=== PATIENT | male | born 1945 | race Caucasian/White ===

== ENCOUNTER 2022-11-04 19:21 | Inpatient (IN) | payer OTHER, BC ==
[2022-11-04 19:45] VITALS: BMI 31.9
[2022-11-04] MEDS ORDERED: ACETAMINOPHEN 1000 MG/100 ML BAG IVPB ONE (22:55)
[2022-11-05 00:04] LABS: BASO % 0.5 % (0-2.0); EOS % 1.1 % (0-4.5); HEMATOCRIT 47.4 % (35.4-49); HEMOGLOBIN 15.9 GM/dL (11.7-16.9); LYMPH % 12.2 % (8-40); MCH 32.7 pg (25.7-33.7); MCHC 33.6 g/dl (32.0-35.9); MEAN CELL VOLUME 97.4 fl (80-96); MEAN PLT VOLUME 8.7 fl (7.5-11.1); NEUT % 73.2 % (42.8-82.8); PLATELET COUNT 290 10^3/uL (134-434); RBC 4.86 M/mm3 (4.00-5.60); RDW 13.5 % (11.9-15.9); WHITE BLOOD COUNT 9.4 K/mm3 (4.0-10.0)
[2022-11-05 00:27] LABS: CHLORIDE 100 mmol/L (98-107); SODIUM 131 mmol/L (136-145)
[2022-11-05 00:29] LABS: ALBUMIN 3.5 g/dl (3.4-5.0); CALCIUM 9.4 mg/dL (8.5-10.1); CO2 30 mmol/L (21-32)
[2022-11-05 00:30] LABS: BLOOD UREA NITROGEN 23.2 mg/dL (7-18); GLUCOSE,RANDOM 86 mg/dL (74-106)
[2022-11-05 00:33] LABS: CREATININE 1.4 mg/dL (0.55-1.3)
[2022-11-05 00:34] LABS: TOT PROT 9.2 g/dl (6.4-8.2)
[2022-11-05] MEDS ORDERED: VANCOMYCIN 1 GM in D5W (PRE-DOCKED) 1,000 MG/250 ML (RESTRICTED TO ID ONLY IVPB ONE (00:34)
[2022-11-05] MEDS ORDERED: PIPERACILLIN/TAZOB 4.5 GM 4.5 GM in DEXTROSE 5%-WATER 100 ML IVPB ONE (00:34)
[2022-11-05 00:35] LABS: ALK PHOS 96 U/L (45-117)
[2022-11-05 00:49] LABS: ANION GAP 1 MMOL/L (8-16); POTASSIUM > 10.0 mmol/L (3.5-5.1); SGOT/AST 229 U/L (15-37); SGPT/ALT 34 U/L (13-61)
[2022-11-05] MEDS ORDERED: PIPERACILLIN/TAZOB 4.5 GM 4.5 GM/100 ML BAG IVPB ONE (00:59)
[2022-11-05] MEDS ORDERED: VANCOMYCIN/WATER FOR INJ (PEG) 1,000 MG/200 ML BAG IVPB ONE (00:59)
[2022-11-05] MEDS ORDERED: LORazepam 2 MG/ML SDV VIAL IVPUSH ONE ×2 (01:25→03:34)
[2022-11-05 03:17] LABS: POTASSIUM 9.3 mmol/L (3.5-5.1)
[2022-11-05] MEDS ORDERED: HEPARIN NA (PORCINE) 5,000 UNITS/ML 1ML VIAL SQ SCH (06:00)
[2022-11-05 06:41] LABS: HEMATOCRIT 44.1 % (35.4-49); HEMOGLOBIN 14.9 GM/dL (11.7-16.9); MCH 32.9 pg (25.7-33.7); MCHC 33.7 g/dl (32.0-35.9); MEAN CELL VOLUME 97.5 fl (80-96); MEAN PLT VOLUME 8.2 fl (7.5-11.1); PLATELET COUNT 243 10^3/uL (134-434); RBC 4.52 M/mm3 (4.00-5.60); RDW 13.1 % (11.9-15.9); WHITE BLOOD COUNT 10.4 K/mm3 (4.0-10.0)
[2022-11-05] MEDS ORDERED: ALBUTEROL SO4 HFA INHALER IH PRN (06:46)
[2022-11-05 07:05] LABS: CHLORIDE 104 mmol/L (98-107); POTASSIUM 4.4 mmol/L (3.5-5.1); SODIUM 138 mmol/L (136-145)
[2022-11-05 07:05] LABS: EPI CELLS 3 /uL (0-25.1); HYALINE CASTS 0 /uL (0-3.1); URINE APPEARANCE CLEAR; URINE BACTERIA 1 /uL (0-1359); URINE BILIRUBIN NEGATIVE (NEGATIVE); URINE COLOR YELLOW; URINE GLUCOSE (UA) NEGATIVE (NEGATIVE); URINE KETONE NEGATIVE (NEGATIVE); URINE LEUK ESTERASE TRACE (NEGATIVE); URINE NITRITE NEGATIVE (NEGATIVE); URINE PROTEIN TRACE (NEGATIVE); URINE RBC 26 /uL (0-23.9); URINE UROBILINOGEN 0.2 mg/dL (0.2-1.0); URINE WBC 16 /uL (0-25.8)
[2022-11-05 07:08] LABS: ALBUMIN 3.5 g/dl (3.4-5.0); ANION GAP 8 MMOL/L (8-16); BLOOD UREA NITROGEN 21.3 mg/dL (7-18); CALCIUM 8.7 mg/dL (8.5-10.1); CO2 26 mmol/L (21-32); MAGNESIUM 2.1 mg/dL (1.8-2.4)
[2022-11-05 07:09] LABS: METHADONE, UR NEGATIVE (NEGATIVE); PHENCYCLIDINE,URINE NEGATIVE (NEGATIVE); URINE BENZODIAZEPINES NEGATIVE (NEGATIVE)
[2022-11-05 07:09] LABS: GLUCOSE,RANDOM 111 mg/dL (74-106)
[2022-11-05 07:10] LABS: COCAINE, UR NEGATIVE (NEGATIVE); OPIATES, URI NEGATIVE (NEGATIVE); URINE BARBITURATES NEGATIVE (NEGATIVE)
[2022-11-05 07:11] LABS: PHOSPHOROUS 2.7 mg/dL (2.5-4.9); SGOT/AST 20 U/L (15-37); SGPT/ALT 26 U/L (13-61)
[2022-11-05 07:12] LABS: CREATININE 1.3 mg/dL (0.55-1.3)
[2022-11-05 07:13] LABS: BILIRUBIN,TOTAL 0.8 mg/dL (0.2-1); TOT PROT 7.2 g/dl (6.4-8.2)
[2022-11-05 07:14] LABS: ALK PHOS 89 U/L (45-117)
[2022-11-05 07:15] LABS: URINE AMPHETAMINES NEGATIVE (NEGATIVE)
[2022-11-05] MEDS ORDERED: PIPERACILLIN/TAZOB 3.375 GM 3.375 GM in DEXTROSE 5%-WATER - 50 ML IVPB SCH (07:15)
[2022-11-05] MEDS ORDERED: LEVOTHYROXINE NA 50 MCG TABLET (FP) ONE (07:24)
[2022-11-05] MEDS ORDERED: PIPERACILLIN/TAZOB 3.375 GM 3.375 GM/50 ML BAG IVPB ONE (07:25)
[2022-11-05] MEDS: LEVOTHYROXINE NA 50 MCG TABLET (FP) PO SCH (07:33)
[2022-11-05] MEDS ORDERED: TAMSULOSIN HCL 0.4 MG CAP ONE (08:18)
[2022-11-05] MEDS: LORazepam 2 MG/ML SDV VIAL IVPUSH SCH ×3 (08:24→20:44)
[2022-11-05] MEDS ORDERED: TAMSULOSIN HCL 0.4 MG CAP PO SCH (08:30)
[2022-11-05] MEDS ORDERED: FOLIC ACID INJECTION - 1 MG, THIAMINE HCL 100 MG, MULTIVIT INJECTION ADULT 10 ML in SOD... IVPB ONE (09:30)
[2022-11-05] MEDS ORDERED: PATIENT'S OWN MEDICATION (NON-FORMULARY) (Mirabegron [Myrbetriq] 25 MG Tab.Er.24h) PO SCH (10:00)
[2022-11-05] MEDS ORDERED: DULoxetine HCL 30 MG CAPSULE.DR PO SCH (10:00)
[2022-11-05] MEDS ORDERED: FUROSEMIDE 40 MG TABLET (FP) ONE (11:28)
[2022-11-05] MEDS ORDERED: APIXABAN 5 MG TABLET ONE (11:28)
[2022-11-05] MEDS ORDERED: PHENYTOIN NA EXTENDED 100 MG CAPSULE (FP) ONE (11:28)
[2022-11-05] MEDS ORDERED: DULoxetine HCL 30 MG CAPSULE.DR PO ONE (11:28)
[2022-11-05] MEDS ORDERED: ASPIRIN 81 MG CHEWABLE TABLETS ONE (11:28)
[2022-11-05] MEDS: ASPIRIN 81 MG CHEWABLE TABLETS PO SCH (11:34)
[2022-11-05] MEDS: BACITRACIN ZINC 15 GM TUBE TOPICAL OINTMENT TP SCH (11:34)
[2022-11-05] MEDS: METOPROLOL TARTRATE 25 MG TABLET (FP) PO SCH (11:34)
[2022-11-05] MEDS: PHENYTOIN NA EXTENDED 100 MG CAPSULE (FP) PO SCH ×2 (11:34→23:40)
[2022-11-05] MEDS: FUROSEMIDE 40 MG TABLET (FP) PO SCH (11:34)
[2022-11-05] MEDS: APIXABAN 5 MG TABLET PO SCH ×2 (11:34→21:43)
[2022-11-05] MEDS ORDERED: GABAPENTIN 300 MG CAPSULE ONE (14:27)
[2022-11-05] MEDS ORDERED: ceFAZolin SODIUM 1 GM VIAL ONE (14:28)
[2022-11-05] MEDS: CEFAZOLIN 1 GM in DEXTROSE 5%-WATER - 50 ML IVPB SCH ×2 (14:40→18:06)
[2022-11-05] MEDS: GABAPENTIN 300 MG CAPSULE PO SCH ×2 (14:40→21:43)
[2022-11-05] MEDS: THIAMINE HCL 200 MG/2 ML VIAL IVPB SCH (21:41)
[2022-11-05] MEDS: BUDESONIDE/FORMETEROL FUMARATE 160/4.5 mcg INHALER IH SCH (21:42)
[2022-11-05] MEDS: MONTELUKAST NA 10 MG TABLET PO SCH (21:42)
[2022-11-05] MEDS: ROSUVASTATIN CA 20 MG TABLET PO SCH (21:43)
[2022-11-05] MEDS ORDERED: DONEPEZIL HCL 10 MG TABLET (FP) PO SCH (22:00)
[2022-11-06] MEDS: LORazepam 2 MG/ML SDV VIAL IVPUSH SCH ×4 (01:24→21:44)
[2022-11-06] MEDS: CEFAZOLIN 1 GM in DEXTROSE 5%-WATER - 50 ML IVPB SCH ×3 (01:48→17:15)
[2022-11-06] MEDS ORDERED: LORazepam 2 MG/ML SDV VIAL IVPUSH ONE (03:06)
[2022-11-06] MEDS ORDERED: MELATONIN 1 MG TABLET PO PRN (03:07)
[2022-11-06] MEDS: THIAMINE HCL 200 MG/2 ML VIAL IVPB SCH ×4 (03:39→22:34)
[2022-11-06] MEDS: GABAPENTIN 300 MG CAPSULE PO SCH ×3 (05:09→21:44)
[2022-11-06] MEDS: LEVOTHYROXINE NA 50 MCG TABLET (FP) PO SCH (06:11)
[2022-11-06] MEDS: METOPROLOL TARTRATE 25 MG TABLET (FP) PO SCH (09:10)
[2022-11-06] MEDS: APIXABAN 5 MG TABLET PO SCH ×2 (09:11→21:44)
[2022-11-06] MEDS: ASPIRIN 81 MG CHEWABLE TABLETS PO SCH (09:11)
[2022-11-06] MEDS: FUROSEMIDE 40 MG TABLET (FP) PO SCH (11:20)
[2022-11-06] MEDS: BACITRACIN ZINC 15 GM TUBE TOPICAL OINTMENT TP SCH (11:20)
[2022-11-06] MEDS: PHENYTOIN NA EXTENDED 100 MG CAPSULE (FP) PO SCH ×2 (14:24→21:50)
[2022-11-06] MEDS: ROSUVASTATIN CA 20 MG TABLET PO SCH (21:44)
[2022-11-06] MEDS: MONTELUKAST NA 10 MG TABLET PO SCH (21:44)
[2022-11-06] MEDS: BUDESONIDE/FORMETEROL FUMARATE 160/4.5 mcg INHALER IH SCH (21:45)
[2022-11-07] MEDS: CEFAZOLIN 1 GM in DEXTROSE 5%-WATER - 50 ML IVPB SCH ×2 (01:53→09:01)
[2022-11-07] MEDS: LORazepam 2 MG/ML SDV VIAL IVPUSH SCH ×3 (02:28→14:46)
[2022-11-07] MEDS: THIAMINE HCL 200 MG/2 ML VIAL IVPB SCH ×3 (03:46→15:57)
[2022-11-07] MEDS: LEVOTHYROXINE NA 50 MCG TABLET (FP) PO SCH (06:55)
[2022-11-07] MEDS: GABAPENTIN 300 MG CAPSULE PO SCH ×2 (06:56→14:45)
[2022-11-07] MEDS ORDERED: INSULIN (NOVOLOG) ASPART 100 UNITS/ML 10ML VIAL ONE (07:20)
[2022-11-07] MEDS: APIXABAN 5 MG TABLET PO SCH (09:00)
[2022-11-07] MEDS: METOPROLOL TARTRATE 25 MG TABLET (FP) PO SCH (09:00)
[2022-11-07] MEDS: ASPIRIN 81 MG CHEWABLE TABLETS PO SCH (09:00)
[2022-11-07] MEDS: FUROSEMIDE 40 MG TABLET (FP) PO SCH (09:01)
[2022-11-07] MEDS: BACITRACIN ZINC 15 GM TUBE TOPICAL OINTMENT TP SCH (09:02)
[2022-11-07] MEDS: PHENYTOIN NA EXTENDED 100 MG CAPSULE (FP) PO SCH (09:37)
[2022-11-08] MEDS: LORazepam 2 MG/ML SDV VIAL IVPUSH SCH ×2 (00:06→03:51)
[2022-11-08] MEDS: THIAMINE HCL 200 MG/2 ML VIAL IVPB SCH ×4 (00:06→18:17)
[2022-11-08] MEDS: MONTELUKAST NA 10 MG TABLET PO SCH ×2 (00:07→21:43)
[2022-11-08] MEDS: APIXABAN 5 MG TABLET PO SCH ×3 (00:07→21:43)
[2022-11-08] MEDS: GABAPENTIN 300 MG CAPSULE PO SCH ×4 (00:07→21:43)
[2022-11-08] MEDS: ROSUVASTATIN CA 20 MG TABLET PO SCH ×2 (00:07→21:43)
[2022-11-08] MEDS: PHENYTOIN NA EXTENDED 100 MG CAPSULE (FP) PO SCH ×3 (00:17→21:44)
[2022-11-08] MEDS: BUDESONIDE/FORMETEROL FUMARATE 160/4.5 mcg INHALER IH SCH ×2 (00:18→23:09)
[2022-11-08 10:08] LABS: EOS % 0.5 % (0-4.5); HEMATOCRIT 43.3 % (35.4-49); HEMOGLOBIN 14.8 GM/dL (11.7-16.9); LYMPH % 7.9 % (8-40); MCH 33.6 pg (25.7-33.7); MCHC 34.2 g/dl (32.0-35.9); MEAN CELL VOLUME 98.4 fl (80-96); MEAN PLT VOLUME 8.1 fl (7.5-11.1); NEUT % 75.6 % (42.8-82.8); PLATELET COUNT 259 10^3/uL (134-434); RDW 12.9 % (11.9-15.9); WHITE BLOOD COUNT 10.3 K/mm3 (4.0-10.0)
[2022-11-08 10:25] LABS: POTASSIUM 4.1 mmol/L (3.5-5.1)
[2022-11-08 10:34] LABS: ALBUMIN 3.2 g/dl (3.4-5.0); CALCIUM 8.7 mg/dL (8.5-10.1)
[2022-11-08 10:37] LABS: CREATININE 1.3 mg/dL (0.55-1.3)
[2022-11-08 10:38] LABS: TOT PROT 7.3 g/dl (6.4-8.2)
[2022-11-08 10:41] LABS: BILIRUBIN,TOTAL 0.9 mg/dL (0.2-1)
[2022-11-08] MEDS: ASPIRIN 81 MG CHEWABLE TABLETS PO SCH (11:42)
[2022-11-08] MEDS: METOPROLOL TARTRATE 25 MG TABLET (FP) PO SCH (11:42)
[2022-11-08] MEDS: FUROSEMIDE 40 MG TABLET (FP) PO SCH (11:42)
[2022-11-08] MEDS: BACITRACIN ZINC 15 GM TUBE TOPICAL OINTMENT TP SCH (11:43)
[2022-11-09] MEDS ORDERED: ACETAMINOPHEN 500 MG TABLET (FP) PO ONE (01:18)
[2022-11-09] MEDS: LEVOTHYROXINE NA 50 MCG TABLET (FP) PO SCH (07:17)
[2022-11-09] MEDS: GABAPENTIN 300 MG CAPSULE PO SCH ×3 (07:17→22:54)
[2022-11-09] MEDS ORDERED: LORazepam 2 MG/ML SDV VIAL IVPUSH SCH (10:00)
[2022-11-09] MEDS: PHENYTOIN NA EXTENDED 100 MG CAPSULE (FP) PO SCH ×2 (10:58→22:55)
[2022-11-09] MEDS: FUROSEMIDE 40 MG TABLET (FP) PO SCH (10:58)
[2022-11-09] MEDS: APIXABAN 5 MG TABLET PO SCH ×2 (10:58→22:54)
[2022-11-09] MEDS: METOPROLOL TARTRATE 25 MG TABLET (FP) PO SCH (10:58)
[2022-11-09] MEDS: ASPIRIN 81 MG CHEWABLE TABLETS PO SCH (10:58)
[2022-11-09] MEDS: BACITRACIN ZINC 15 GM TUBE TOPICAL OINTMENT TP SCH (11:00)
[2022-11-09] MEDS: ROSUVASTATIN CA 20 MG TABLET PO SCH (22:54)
[2022-11-09] MEDS: MONTELUKAST NA 10 MG TABLET PO SCH (22:54)
[2022-11-09] MEDS: BUDESONIDE/FORMETEROL FUMARATE 160/4.5 mcg INHALER IH SCH (23:00)
[2022-11-09 23:34] VITALS: RESP 18
[2022-11-10] MEDS: GABAPENTIN 300 MG CAPSULE PO SCH ×3 (05:13→21:33)
[2022-11-10] MEDS: LEVOTHYROXINE NA 50 MCG TABLET (FP) PO SCH (06:37)
[2022-11-10] MEDS: ASPIRIN 81 MG CHEWABLE TABLETS PO SCH (10:24)
[2022-11-10] MEDS: METOPROLOL TARTRATE 25 MG TABLET (FP) PO SCH (10:24)
[2022-11-10] MEDS: BACITRACIN ZINC 15 GM TUBE TOPICAL OINTMENT TP SCH (10:26)
[2022-11-10] MEDS: APIXABAN 5 MG TABLET PO SCH ×2 (10:26→21:33)
[2022-11-10] MEDS: FUROSEMIDE 40 MG TABLET (FP) PO SCH (10:27)
[2022-11-10] MEDS: PHENYTOIN NA EXTENDED 100 MG CAPSULE (FP) PO SCH ×2 (10:27→21:33)
[2022-11-10] MEDS: ROSUVASTATIN CA 20 MG TABLET PO SCH (21:33)
[2022-11-10] MEDS: MONTELUKAST NA 10 MG TABLET PO SCH (21:33)
[2022-11-10] MEDS: BUDESONIDE/FORMETEROL FUMARATE 160/4.5 mcg INHALER IH SCH (21:39)
[2022-11-11] MEDS: GABAPENTIN 300 MG CAPSULE PO SCH ×3 (05:18→21:13)
[2022-11-11] MEDS: LEVOTHYROXINE NA 50 MCG TABLET (FP) PO SCH (06:30)
[2022-11-11] MEDS: METOPROLOL TARTRATE 25 MG TABLET (FP) PO SCH (10:46)
[2022-11-11] MEDS: ASPIRIN 81 MG CHEWABLE TABLETS PO SCH (10:46)
[2022-11-11] MEDS: FUROSEMIDE 40 MG TABLET (FP) PO SCH (10:46)
[2022-11-11] MEDS: APIXABAN 5 MG TABLET PO SCH ×2 (10:47→21:14)
[2022-11-11] MEDS: BACITRACIN ZINC 15 GM TUBE TOPICAL OINTMENT TP SCH (10:47)
[2022-11-11] MEDS: PHENYTOIN NA EXTENDED 100 MG CAPSULE (FP) PO SCH ×2 (10:47→21:13)
[2022-11-11 11:02] LABS: BASO % 0.3 % (0-2.0); EOS % 1.2 % (0-4.5); HEMATOCRIT 42.8 % (35.4-49); HEMOGLOBIN 14.9 GM/dL (11.7-16.9); LYMPH % 10.4 % (8-40); MCHC 34.9 g/dl (32.0-35.9); MEAN CELL VOLUME 97.4 fl (80-96); MEAN PLT VOLUME 8.2 fl (7.5-11.1); MONO % 12.7 % (3.8-10.2); NEUT % 75.4 % (42.8-82.8); PLATELET COUNT 268 10^3/uL (134-434); RBC 4.39 M/mm3 (4.00-5.60); RDW 12.7 % (11.9-15.9); WHITE BLOOD COUNT 8.9 K/mm3 (4.0-10.0)
[2022-11-11 11:23] LABS: POTASSIUM 4.2 mmol/L (3.5-5.1)
[2022-11-11 11:25] LABS: CALCIUM 8.9 mg/dL (8.5-10.1)
[2022-11-11 11:26] LABS: BLOOD UREA NITROGEN 30.4 mg/dL (7-18)
[2022-11-11 11:29] LABS: CREATININE 1.3 mg/dL (0.55-1.3)
[2022-11-11] MEDS: ROSUVASTATIN CA 20 MG TABLET PO SCH (21:13)
[2022-11-11] MEDS: MONTELUKAST NA 10 MG TABLET PO SCH (21:13)
[2022-11-11] MEDS: BUDESONIDE/FORMETEROL FUMARATE 160/4.5 mcg INHALER IH SCH (21:14)
[2022-11-11] MEDS: ACETAMINOPHEN 325 MG TABLET (FP) PO PRN (22:00)
[2022-11-11] MEDS: PRAMIPEXOLE DIHYDROCHLORIDE 0.25 MG TABLET PO SCH (23:00)
[2022-11-12] MEDS: LEVOTHYROXINE NA 50 MCG TABLET (FP) PO SCH ×2 (06:09→11:49)
[2022-11-12] MEDS: GABAPENTIN 300 MG CAPSULE PO SCH ×3 (06:09→21:57)
[2022-11-12] MEDS: ACETAMINOPHEN 325 MG TABLET (FP) PO PRN ×3 (06:10→22:05)
[2022-11-12 09:49] LABS: IRON SERUM 45 ug/dL (50-175)
[2022-11-12 09:51] LABS: TOTAL IRON BINDING CAPACITY 170 ug/dL (250-450)
[2022-11-12] MEDS: FUROSEMIDE 40 MG TABLET (FP) PO SCH (11:28)
[2022-11-12] MEDS: METOPROLOL TARTRATE 25 MG TABLET (FP) PO SCH (11:28)
[2022-11-12] MEDS: APIXABAN 5 MG TABLET PO SCH ×2 (11:28→21:57)
[2022-11-12] MEDS: ASPIRIN 81 MG CHEWABLE TABLETS PO SCH (11:29)
[2022-11-12] MEDS: PHENYTOIN NA EXTENDED 100 MG CAPSULE (FP) PO SCH ×2 (11:29→21:56)
[2022-11-12] MEDS: BACITRACIN ZINC 15 GM TUBE TOPICAL OINTMENT TP SCH (14:02)
[2022-11-12] MEDS: PRAMIPEXOLE DIHYDROCHLORIDE 0.25 MG TABLET PO SCH (21:57)
[2022-11-12] MEDS: ROSUVASTATIN CA 20 MG TABLET PO SCH (21:57)
[2022-11-12] MEDS: BUDESONIDE/FORMETEROL FUMARATE 160/4.5 mcg INHALER IH SCH (21:58)
[2022-11-12] MEDS: MONTELUKAST NA 10 MG TABLET PO SCH (21:58)
[2022-11-13] MEDS: GABAPENTIN 300 MG CAPSULE PO SCH ×2 (05:58→13:19)
[2022-11-13] MEDS: ACETAMINOPHEN 325 MG TABLET (FP) PO PRN ×2 (05:59→16:56)
[2022-11-13] MEDS: LEVOTHYROXINE NA 50 MCG TABLET (FP) PO SCH (06:03)
[2022-11-13] MEDS: METOPROLOL TARTRATE 25 MG TABLET (FP) PO SCH (11:16)
[2022-11-13] MEDS: APIXABAN 5 MG TABLET PO SCH (11:16)
[2022-11-13] MEDS: ASPIRIN 81 MG CHEWABLE TABLETS PO SCH (11:16)
[2022-11-13] MEDS: FUROSEMIDE 40 MG TABLET (FP) PO SCH (11:16)
[2022-11-13] MEDS: PHENYTOIN NA EXTENDED 100 MG CAPSULE (FP) PO SCH (11:17)
[2022-11-13] MEDS: BACITRACIN ZINC 15 GM TUBE TOPICAL OINTMENT TP SCH (15:07)
[2022-11-13 15:11] VITALS: BP 120/68; PULSE 75; TEMP 98.4
== END 2022-11-13 17:52 | DRG 602 ==
LOC: JER 19:21 → JERBED 11-05 01:43 → J6S 11-05 15:45
PROVIDERS: ADMIT Internal Medicine; ATTEND Internal Medicine
DX: L03.115 Cellulitis of right lower limb (principal); G93.41 Metabolic encephalopathy; L97.818 Non-pressure chronic ulcer of other part of right lower leg with other specified severity; I10 Essential (primary) hypertension; L03.116 Cellulitis of left lower limb; I25.2 Old myocardial infarction; G62.89 Other specified polyneuropathies; F32.A Depression, unspecified; J44.9 Chronic obstructive pulmonary disease, unspecified; E03.9 Hypothyroidism, unspecified; F10.10 Alcohol abuse, uncomplicated; I73.9 Peripheral vascular disease, unspecified; G40.909 Epilepsy, unspecified, not intractable, without status epilepticus; F03.90 Unspecified dementia, unspecified severity, without behavioral disturbance, psychotic disturbance, mood disturbance, and anxiety; I25.10 Atherosclerotic heart disease of native coronary artery without angina pectoris; E78.5 Hyperlipidemia, unspecified; G20 Parkinson's disease; G25.81 Restless legs syndrome; N32.81 Overactive bladder; Z95.5 Presence of coronary angioplasty implant and graft; Z95.0 Presence of cardiac pacemaker; Z86.73 Personal history of transient ischemic attack (TIA), and cerebral infarction without residual deficits; Z85.038 Personal history of other malignant neoplasm of large intestine
CPT/HCPCS: 36415; 70450-TC; 71045-TC-FY; 73590-TC-RT-FY; 73630-TC-RT-FY; 80048; 80053; 80185; 80307; 81003; 82607; 82962; 83036; 83540; 83550; 83735; 84100; 84132; 84443; 85025; 85027; 85651; 86140; 87040; 87081; 87635; 93005; 93010; 93306-TC; 93970-TC; 97116-GP; 97161-GP; 99285-25

== ENCOUNTER 2023-02-01 12:52 | Inpatient (IN) | payer OTHER, BC ==
[2023-02-01] MEDS ORDERED: SODIUM CHLORIDE 0.9% 500 ML INFUS.BAG IV ONE (13:49)
[2023-02-01 14:43] LABS: BASO % 0.6 % (0-2.0); EOS % 1.6 % (0-4.5); HEMATOCRIT 45.8 % (35.4-49); HEMOGLOBIN 15.7 GM/dL (11.7-16.9); LYMPH % 17.1 % (8-40); MCH 33.6 pg (25.7-33.7); MCHC 34.4 g/dl (32.0-35.9); MEAN CELL VOLUME 97.8 fl (80-96); MEAN PLT VOLUME 7.9 fl (7.5-11.1); MONO % 14.8 % (3.8-10.2); NEUT % 65.9 % (42.8-82.8); PLATELET COUNT 188 10^3/uL (134-434); RBC 4.68 M/mm3 (4.00-5.60); RDW 13.7 % (11.9-15.9); WHITE BLOOD COUNT 7.2 K/mm3 (4.0-10.0)
[2023-02-01 14:50] LABS: INR 1.19 (0.83-1.09); PROTHROMBIN TIME (PATIENT) 13.8 SEC (9.7-13.0)
[2023-02-01 14:53] LABS: ACTIVATED PTT 31.9 SECONDS (25.2-36.5)
[2023-02-01 15:05] LABS: CHLORIDE 103 mmol/L (98-107); POTASSIUM 4.4 mmol/L (3.5-5.1); SODIUM 135 mmol/L (136-145)
[2023-02-01 15:08] LABS: ANION GAP 7 mmol/L (4-13); CALCIUM 8.9 mg/dL (8.5-10.1); CO2 26 mmol/L (21-32); GLUCOSE,RANDOM 87 mg/dL (74-106); LIPASE 103 U/L (73-393); MAGNESIUM 2.3 mg/dL (1.8-2.4)
[2023-02-01 15:09] LABS: BLOOD UREA NITROGEN 31.6 mg/dL (7-18)
[2023-02-01 15:11] LABS: CREATININE 1.5 mg/dL (0.55-1.3); PHOSPHOROUS 3.8 mg/dL (2.5-4.9); SGOT/AST 29 U/L (15-37); SGPT/ALT 23 U/L (13-61)
[2023-02-01 15:13] LABS: BILIRUBIN,TOTAL 0.7 mg/dL (0.2-1); TOT PROT 7.8 g/dl (6.4-8.2)
[2023-02-01 15:14] LABS: ALK PHOS 90 U/L (45-117)
[2023-02-01] MEDS ORDERED: ACETAMINOPHEN 1000 MG/100 ML BAG IVPB ONE (15:19)
[2023-02-01 15:40] LABS: EPI CELLS 6 /uL (0-25.1); HYALINE CASTS 1 /uL (0-3.1); PH,URINE 5.5 (5.0-8.0); URINE APPEARANCE CLEAR; URINE BACTERIA 2 /uL (0-1359); URINE BILIRUBIN NEGATIVE (NEGATIVE); URINE COLOR DK YELLOW; URINE GLUCOSE (UA) NEGATIVE (NEGATIVE); URINE KETONE TRACE (NEGATIVE); URINE LEUK ESTERASE TRACE (NEGATIVE); URINE NITRITE NEGATIVE (NEGATIVE); URINE PROTEIN 1+ (NEGATIVE); URINE RBC 18 /uL (0-23.9); URINE WBC 23 /uL (0-25.8)
[2023-02-01] MEDS ORDERED: ACETAMINOPHEN INJECTION 100 ML IVPB ONE (16:08)
[2023-02-01 16:16] LABS: N-TERMINAL BNP 923.7 pg/ml (5-450)
[2023-02-01] MEDS ORDERED: AZITHROMYCIN IVPB 500 MG in DEXTROSE 5%-WATER - 250 ML IVPB ONE (16:17)
[2023-02-01] MEDS ORDERED: CEFTRIAXONE 1 GM in DEXTROSE 5%-WATER - 100 ML IVPB ONE (16:17)
[2023-02-01] MEDS ORDERED: CEFTRIAXONE 1 GM/50 ML BAG ONE (16:26)
[2023-02-01] MEDS ORDERED: AZITHROMYCIN IVPB 500 MG/250 ML BAG IVPB ONE (16:47)
[2023-02-01] MEDS ORDERED: FUROSEMIDE 40 MG/4 ML INJECTABLE VIAL IVPUSH ONE (17:12)
[2023-02-01] MEDS ORDERED: LORazepam 2 MG/ML SDV VIAL IVPUSH ONE (17:25)
[2023-02-01] MEDS ORDERED: FUROSEMIDE 40 MG/4 ML INJECTABLE VIAL ONE (17:28)
[2023-02-01] MEDS ORDERED: ALBUTEROL SO4 0.042% IH SOL 1.25 MG/3 ML VIAL.NEB NEB PRN (17:34)
[2023-02-01] MEDS: APIXABAN 5 MG TABLET PO SCH (21:09)
[2023-02-01] MEDS: PRAMIPEXOLE DIHYDROCHLORIDE 0.25 MG TABLET PO SCH (21:09)
[2023-02-01] MEDS: ROSUVASTATIN CA 20 MG TABLET PO SCH (21:09)
[2023-02-01] MEDS: PHENYTOIN NA EXTENDED 100 MG CAPSULE (FP) PO SCH (21:09)
[2023-02-01] MEDS: MONTELUKAST NA 10 MG TABLET PO SCH (21:09)
[2023-02-01] MEDS: BUDESONIDE/FORMETEROL FUMARATE 160/4.5 mcg INHALER IH SCH (21:54)
[2023-02-02] MEDS ORDERED: ACETAMINOPHEN 325 MG TABLET (FP) PO ONE (05:34)
[2023-02-02] MEDS: LEVOTHYROXINE NA 50 MCG TABLET (FP) PO SCH (06:24)
[2023-02-02] MEDS ORDERED: QUEtiapine FUMARATE 25 MG TABLET PO ONE (08:15)
[2023-02-02] MEDS: CEFTRIAXONE 1 GM in DEXTROSE 5%-WATER - 50 ML IVPB SCH (10:15)
[2023-02-02] MEDS: FUROSEMIDE 40 MG/4 ML INJECTABLE VIAL IVPUSH SCH (10:16)
[2023-02-02] MEDS: AZITHROMYCIN IVPB 250 MG in DEXTROSE 5%-WATER - 250 ML IVPB SCH (10:54)
[2023-02-02] MEDS ORDERED: PNEUMOC 20-VAL CONJ-DIP CRM/PF 0.5 ML SYRINGE IM ONE (11:00)
[2023-02-02] MEDS: metoPROLOL SUCCINATE 25 MG TAB.SR.24H (FP) PO SCH (11:57)
[2023-02-02] MEDS: APIXABAN 5 MG TABLET PO SCH ×2 (11:57→20:59)
[2023-02-02] MEDS: PHENYTOIN NA EXTENDED 100 MG CAPSULE (FP) PO SCH ×2 (11:57→20:59)
[2023-02-02] MEDS: BUDESONIDE/FORMETEROL FUMARATE 160/4.5 mcg INHALER IH SCH ×2 (14:26→21:04)
[2023-02-02] MEDS ORDERED: LORazepam 2 MG/ML SDV VIAL IVPB PRN (17:44)
[2023-02-02] MEDS: ROSUVASTATIN CA 20 MG TABLET PO SCH (20:59)
[2023-02-02] MEDS: PRAMIPEXOLE DIHYDROCHLORIDE 0.25 MG TABLET PO SCH (20:59)
[2023-02-02] MEDS: MONTELUKAST NA 10 MG TABLET PO SCH (20:59)
[2023-02-03] MEDS: LEVOTHYROXINE NA 50 MCG TABLET (FP) PO SCH (06:47)
[2023-02-03] MEDS ORDERED: HALOPERIDOL LACTATE 5 MG/ML IM ONE ×2 (08:45→16:35)
[2023-02-03] MEDS: FUROSEMIDE 40 MG/4 ML INJECTABLE VIAL IVPUSH SCH (09:34)
[2023-02-03] MEDS: CEFTRIAXONE 1 GM in DEXTROSE 5%-WATER - 50 ML IVPB SCH (09:34)
[2023-02-03] MEDS: AZITHROMYCIN IVPB 250 MG in DEXTROSE 5%-WATER - 250 ML IVPB SCH (10:26)
[2023-02-03] MEDS ORDERED: FLU VACCINE (FLULAVAL) PF 60 MCG/0.5 ML SYRINGE 2023-2024 IM ONE (11:00)
[2023-02-03] MEDS: PHENYTOIN NA EXTENDED 100 MG CAPSULE (FP) PO SCH ×2 (12:24→21:23)
[2023-02-03] MEDS: APIXABAN 5 MG TABLET PO SCH ×2 (12:24→21:24)
[2023-02-03] MEDS: metoPROLOL SUCCINATE 25 MG TAB.SR.24H (FP) PO SCH (12:24)
[2023-02-03] MEDS: BUDESONIDE/FORMETEROL FUMARATE 160/4.5 mcg INHALER IH SCH ×2 (12:28→21:25)
[2023-02-03] MEDS ORDERED: ALBUTEROL SO4 0.042% IH SOL 1.25 MG/3 ML VIAL.NEB NEB PRN (14:09)
[2023-02-03 14:49] VITALS: BMI 29.7
[2023-02-03] MEDS: THIAMINE HCL 100 MG TABLET (FP) PO SCH (16:44)
[2023-02-03] MEDS: FOLIC ACID 1 MG TABLET (FP) PO SCH (16:44)
[2023-02-03] MEDS ORDERED: LORazepam 2 MG/ML SDV VIAL IM SCH (16:45)
[2023-02-03 18:39] VITALS: RESP 18
[2023-02-03] MEDS: ROSUVASTATIN CA 20 MG TABLET PO SCH (21:23)
[2023-02-03] MEDS: MELATONIN 5 MG TABLETS PO SCH (21:24)
[2023-02-03] MEDS: OLANZapine 10 MG TABLET PO SCH (21:25)
[2023-02-03] MEDS: PRAMIPEXOLE DIHYDROCHLORIDE 0.25 MG TABLET PO SCH (21:25)
[2023-02-03] MEDS: MONTELUKAST NA 10 MG TABLET PO SCH (21:25)
[2023-02-03] MEDS ORDERED: BUDESONIDE/FORMETEROL FUMARATE 160/4.5 mcg INHALER IH SCH (22:00)
[2023-02-04] MEDS: LORazepam 2 MG/ML SDV VIAL IVPUSH PRN ×2 (04:02→10:21)
[2023-02-04] MEDS: LEVOTHYROXINE NA 50 MCG TABLET (FP) PO SCH (06:14)
[2023-02-04 07:28] LABS: BASO % 0.5 % (0-2.0); EOS % 1.9 % (0-4.5); HEMOGLOBIN 14.7 GM/dL (11.7-16.9); LYMPH % 14.4 % (8-40); MCH 33.7 pg (25.7-33.7); MCHC 34.3 g/dl (32.0-35.9); MEAN CELL VOLUME 98.2 fl (80-96); MEAN PLT VOLUME 7.7 fl (7.5-11.1); MONO % 14.9 % (3.8-10.2); NEUT % 68.3 % (42.8-82.8); PLATELET COUNT 181 10^3/uL (134-434); RBC 4.38 M/mm3 (4.00-5.60); RDW 13.6 % (11.9-15.9); WHITE BLOOD COUNT 6.8 K/mm3 (4.0-10.0)
[2023-02-04 07:40] LABS: POTASSIUM 3.8 mmol/L (3.5-5.1)
[2023-02-04 07:43] LABS: ALBUMIN 3.7 g/dl (3.4-5.0); CALCIUM 8.6 mg/dL (8.5-10.1)
[2023-02-04 07:46] LABS: CREATININE 1.7 mg/dL (0.55-1.3)
[2023-02-04 07:48] LABS: BILIRUBIN,TOTAL 0.5 mg/dL (0.2-1)
[2023-02-04] MEDS: THIAMINE HCL 100 MG TABLET (FP) PO SCH (09:12)
[2023-02-04] MEDS: APIXABAN 5 MG TABLET PO SCH ×2 (09:12→23:01)
[2023-02-04] MEDS: FUROSEMIDE 40 MG TABLET (FP) PO SCH (09:12)
[2023-02-04] MEDS: FOLIC ACID 1 MG TABLET (FP) PO SCH (09:12)
[2023-02-04] MEDS: metoPROLOL SUCCINATE 25 MG TAB.SR.24H (FP) PO SCH (09:12)
[2023-02-04] MEDS: PHENYTOIN NA EXTENDED 100 MG CAPSULE (FP) PO SCH ×2 (09:13→23:01)
[2023-02-04] MEDS: BUDESONIDE/FORMETEROL FUMARATE 160/4.5 mcg INHALER IH SCH ×2 (09:14→23:02)
[2023-02-04] MEDS: CEFTRIAXONE 1 GM in DEXTROSE 5%-WATER - 50 ML IVPB SCH (09:14)
[2023-02-04] MEDS: AZITHROMYCIN IVPB 250 MG in DEXTROSE 5%-WATER - 250 ML IVPB SCH (09:49)
[2023-02-04] MEDS ORDERED: MONTELUKAST NA 10 MG TABLET PO SCH (10:00)
[2023-02-04] MEDS ORDERED: HALOPERIDOL LACTATE 5 MG/ML IM ONE (11:55)
[2023-02-04 15:09] VITALS: BP 102/56; PULSE 91; TEMP 98
[2023-02-04] MEDS: MELATONIN 5 MG TABLETS PO SCH (23:01)
[2023-02-04] MEDS: ROSUVASTATIN CA 20 MG TABLET PO SCH (23:01)
[2023-02-04] MEDS: OLANZapine 10 MG TABLET PO SCH (23:02)
[2023-02-04] MEDS: MONTELUKAST NA 10 MG TABLET PO SCH (23:02)
[2023-02-04] MEDS: PRAMIPEXOLE DIHYDROCHLORIDE 0.25 MG TABLET PO SCH (23:02)
[2023-02-05] MEDS: LORazepam 2 MG/ML SDV VIAL IVPUSH PRN ×2 (04:53→09:50)
[2023-02-05] MEDS: LEVOTHYROXINE NA 50 MCG TABLET (FP) PO SCH (06:14)
[2023-02-05] MEDS: CEFTRIAXONE 1 GM in DEXTROSE 5%-WATER - 50 ML IVPB SCH (10:08)
[2023-02-05] MEDS: AZITHROMYCIN IVPB 250 MG in DEXTROSE 5%-WATER - 250 ML IVPB SCH (10:08)
[2023-02-05] MEDS: FOLIC ACID 1 MG TABLET (FP) PO SCH (10:09)
[2023-02-05] MEDS: metoPROLOL SUCCINATE 25 MG TAB.SR.24H (FP) PO SCH (10:09)
[2023-02-05] MEDS: APIXABAN 5 MG TABLET PO SCH (10:09)
[2023-02-05] MEDS: THIAMINE HCL 100 MG TABLET (FP) PO SCH (10:09)
[2023-02-05] MEDS: FUROSEMIDE 40 MG TABLET (FP) PO SCH (10:09)
[2023-02-05] MEDS: PHENYTOIN NA EXTENDED 100 MG CAPSULE (FP) PO SCH (10:09)
[2023-02-05] MEDS: BUDESONIDE/FORMETEROL FUMARATE 160/4.5 mcg INHALER IH SCH (10:10)
== END 2023-02-05 16:31 | disposition left against medical advice (07) | DRG 193 ==
LOC: JER 12:52 → JERBED 16:39 → J5S 20:02 → OBSVTOIN 02-03 09:56 → J4S 02-03 13:38
PROVIDERS: ADMIT Internal Medicine; ATTEND Internal Medicine
DX: J18.9 Pneumonia, unspecified organism (principal); I50.31 Acute diastolic (congestive) heart failure; I25.10 Atherosclerotic heart disease of native coronary artery without angina pectoris; I11.0 Hypertensive heart disease with heart failure; J44.9 Chronic obstructive pulmonary disease, unspecified; F03.90 Unspecified dementia, unspecified severity, without behavioral disturbance, psychotic disturbance, mood disturbance, and anxiety; I10 Essential (primary) hypertension; E03.9 Hypothyroidism, unspecified; F32.A Depression, unspecified; E78.5 Hyperlipidemia, unspecified; R56.9 Unspecified convulsions; I73.9 Peripheral vascular disease, unspecified; Z95.5 Presence of coronary angioplasty implant and graft; Z85.46 Personal history of malignant neoplasm of prostate; Z85.038 Personal history of other malignant neoplasm of large intestine; Z95.0 Presence of cardiac pacemaker; Z86.718 Personal history of other venous thrombosis and embolism
CPT/HCPCS: 0241U-QW; 36415; 71045-TC-FY; 80053; 80307; 81003; 83605; 83690; 83735; 83880; 84100; 84443; 84484; 85025; 85610; 85730; 87086; 93005; 93010; 93971-TC; 99285-25; G0378